=== PATIENT | female | born 1955 | race Hispanic/Latino ===

== ENCOUNTER 2019-05-19 09:36 | Emergency (ER) | payer MEDICARE ==
[2019-05-19 09:41] VITALS: BP 149/90
[2019-05-19] MEDS ORDERED: IBUPROFEN PO ONE (09:56)
--- NOTE | 2019-05-19 10:03 | Emergency Department Report ---
Upper Extremity - HPI Chief Complaint: Extremity Problem,Nontraumatic Stated Complaint: LFT SIDE PAIN Time Seen by Provider: 05/19/19 09:55 Upper Extremity: Left Shoulder Occurred When: >5 Days Mechanism: Unsure Severity: moderate Symptoms: Yes Pain with Movement, Yes Limited Range of Movement, No Deformity, No Numbness, No Weakness, No Swelling, No Bruising/Ecchymosis, No Laceration or Abrasion Other History: Mrs. Pulido is a very pleasant 63 yo female with hx of tobacco use who presents with left shoulder pain for the past 1 1/2 months. Attempted to see orthopedic surgeon. Nurse of the orthopedic surgeon recommended x-rays. No direct trauma. She is retired. Has been active with grandchildren. No remote trauma. Moderately severe pain. Decreased ROM in left shoulder with stiffness. ED Review of Systems ROS: Stated complaint: LFT SIDE PAIN Other details as noted in HPI Constitutional: denies: fever, malaise Respiratory: denies: cough, shortness of breath Musculoskeletal: arthralgia. 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 No distress. Alert and acting appropriately. Head and Torso: No HEENT Abnormality, No Neck Tenderness Shoulder Exam: Yes Shoulder Tenderness, No Clavicle Tenderness, No Normal Range of Motion in Shoulder, No Shoulder Deformity, No AC Joint Tenderness Arm Exam: No Arm/Humerus Tenderness, No Arm Deformity Elbow: Yes Normal Range of Motion in Elbow, No Elbow Tenderness, No Elbow Deformity Forearm: No Forearm Tenderness, No Forearm Deformity, No Pain with Pronation, No Pain with Supination Wrist: Yes Normal ROM in Wrist, No Wrist Tenderness, No Wrist Deformity, No Snuffbox Tenderness, No Pain with Axial Thumb Compression Hand: Yes Normal ROM in Digit(s), No Hand Tenderness, No Hand Deformity, No Digit Tenderness, No Digit(s) Deformity, No Tendon Dysfunction CMS Exam: Yes Normal Distal Pulses, Yes Normal Capillary Refill, Yes Normal Distal Sensation, No Broken Skin ED Course Vital Signs 05/19/19 09:37 Temperature 98.2 F Pulse Rate 91 H Respiratory 20 Rate Blood Pressure 149/90 [Right] O2 Sat by Pulse 92 Oximetry ED Medical Decision Making - Radiology Data Radiology results: report reviewed Left shoulder radiographs: Degenerative changes without fracture or subluxation no soft tissue swelling or radiopaque foreign body - Medical Decision Making Left shoulder DJD will need further evaluation by orthopedic surgeon: possible rotator cuff tendinitis versus tear Prescribed ibuprofen Critical care attestation.: If time is entered above; I have spent that time in minutes in the direct care of this critically ill patient, excluding procedure time. ED Disposition Clinical Impression: DJD of left shoulder, Acute pain of left shoulder Disposition: DC-01 TO HOME OR SELFCARE Is pt being admited?: No Does the pt Need Aspirin: No Condition: Stable Additional Instructions: Please take the ibuprofen as prescribed. Please contact Dr. Fowler's office. Please let his office know that the x-rays of the shoulder are available in the hospital computer system. Prescriptions: Ibuprofen [Motrin 800 MG tab] 800 mg PO TID 5 Days #15 tablet Referrals: WYATT FOWLER MD [Staff Physician] - 3-5 Days
--- NOTE | 2019-05-19 11:55 | XRay Report ---
LEFT SHOULDER 4 VIEWS INDICATION: left shoulder pain. COMPARISON: No relevant prior imaging study available. FINDINGS: No acute fracture or dislocation is seen. There is mild acromioclavicular degenerative change. No sof t tissue calcifications. IMPRESSION: 1. No acute findings. Signer Name: Nathaniel Ashley MD Signed: 05/19/2019 11:50 AM Workstation Name: [facility]
== END 2019-05-19 11:02 | disposition home or self-care (01) ==
LOC: ED 09:36
DX: M25.512 Pain in left shoulder (principal); M19.012 Primary osteoarthritis, left shoulder; F17.200 Nicotine dependence, unspecified, uncomplicated

== ENCOUNTER 2021-03-15 14:45 | Emergency (ER) | payer MEDICARE ==
[2021-03-15 17:07] VITALS: BP 171/83
--- NOTE | 2021-03-15 17:33 | Emergency Department Report ---
- General Chief complaint: Skin Rash Stated complaint: SHINGLES Time Seen by Provider: 03/15/21 17:27 Source: patient Mode of arrival: Ambulatory Limitations: No Limitations - History of Present Illness Initial comments: Patient is a 65-year-old female presents to the emergency room complaints of a rash that began 2 weeks ago. States that it has been itching and she has been scratching frequently. She denies anyone else with the same rash. States that she was concerned she may have shingles but has never had shingles in the past. She states that the rash was present to her back of her neck and her lower back. She denies any new soaps, lotions, detergents, medications, foods. States that she has been under a lot of stress. She denies any facial swelling or difficult y swallowing. She denies any fever, nausea, vomiting, diarrhea, chills. Patient denies any past medical history or daily medications. No allergies to medications. - Related Data Previous Rx's Medication Instructions Recorded Last Taken Type Ibuprofen [Motrin 800 MG tab] 800 mg PO TID 5 Days #15 tablet 05/19/19 Unknown Rx Triamcinolone 0.1% [Kenalog 0.1% 1 applic TP TID #3 tube 03/15/21 Unknown Rx CREAM] hydrOXYzine HCL [Atarax] 25 mg PO Q6HR PRN #12 tablet 03/15/21 Unknown Rx Allergies Allergy/AdvReac Type Severity Reaction Status Date / Time No Known Allergies Allergy Unverified 05/19/19 09:37 Abscess Boil HPI - HPI Chief Complaint: Skin Rash Stated Complaint: SHINGLES Time Seen by Provider: 03/15/21 17:27 Home Medications: Previous Rx's Medication Instructions Recorded Last Taken Type Ibuprofen [Motrin 800 MG tab] 800 mg PO TID 5 Days #15 tablet 05/19/19 Unknown Rx Triamcinolone 0.1% [Kenalog 0.1% 1 applic TP TID #3 tube 03/15/21 Unknown Rx CREAM] hydrOXYzine HCL [Atarax] 25 mg PO Q6HR PRN #12 tablet 03/15/21 Unknown Rx Allergies/Adverse Reactions: Allergies Allergy/AdvReac Type Severity Reaction Status Date / Time No Known Allergies Allergy Unverified 05/19/19 09:37 ED Review of Systems ROS: Stated complaint: SHINGLES Other details as noted in HPI Comment: All other systems reviewed and negative ED Past Medical Hx - Past Medical History Previous Medical History?: No - Surgical History Past Surgical History?: Yes Additional Surgical History: C section - Social History Smoking Status: Current Every Day Smoker - Medications Home Medications: Home Medications Medication Instructions Recorded Confirmed Last Taken Type Ibuprofen [Motrin 800 MG tab] 800 mg PO TID 5 Days #15 tablet 05/19/19 Unknown Rx Triamcinolone 0.1% [Kenalog 0.1% 1 applic TP TID #3 tube 03/15/21 Unknown Rx CREAM] hydrOXYzine HCL [Atarax] 25 mg PO Q6HR PRN #12 tablet 03/15/21 Unknown Rx ED Physical Exam - General Limitations: No Limitations General appearance: alert, in no apparent distress - Head Head exam: Present: atraumatic, normocephalic - Eye Eye exam: Present: normal appearance - ENT ENT exam: Present: mucous membranes moist - Neurological Exam Neurological exam: Present: alert, oriented X3 - Psychiatric Psychiatric exam: Present: normal affect, normal mood - Skin Skin exam: Present: warm, dry, other (maculopapular rash present to the posterior neck, upper back and lower back, no blistering, no skin denuding, no signs of infection) ED Course Vital Signs 03/15/21 17:04 Temperature 98.4 F Pulse Rate 76 Respiratory 20 Rate Blood Pressure 171/83 [Right] O2 Sat by Pulse 94 Oximetry ED Medical Decision Making - Medical Decision Making Patient is a 65-year-old female presents to the emergency room complaints of a rash that began 2 weeks ago. States that it has been itching and she has been scratching frequently. She denies anyone else with the same rash. States that she was concerned she may have shingles but has never had shingles in the past. She states that the rash was present to her back of her neck and her lower back. She denies any new soaps, lotions, detergents, medications, foods. States that she has been under a lot of stress. She denies any facial swelling or difficulty swallowing. She denies any fever, nausea, vomiting, diarrhea, chills. Patient denies any past medical history or daily medications. No allergies to medications. vss. on exam:maculopapular rash present to the posterior neck, upper back and lower back, no blistering, no skin denuding, no signs of infection. Examination appears consistent with a skin dermatitis. Patient given prescription for medications. Discussed the importance of primary care and dermatology follow-up. She has no clinical signs of emergent skin condition at this time. Advised patient Please use medication as prescribed. Please avoid scratching. Follow-up with your primary care doctor and a flow manager. Return to emergency room for any new or worsening symptoms. Critical care attestation.: If time is entered above; I have spent that time in minutes in the direct care of this critically ill patient, excluding procedure time. ED Disposition Clinical Impression: Rash Disposition: DC- TO HOME OR SELFCARE Is pt being admited?: No Does the pt Need Aspirin: No Condition: Stable Instructions: Contact Dermatitis, [id number] Additional Instructions: Please use medication as prescribed. Please avoid scratching. Follow-up with your primary care doctor and a flow manager. Return to emergency room for any new or worsening symptoms. flow manager: [facility] [address] [facility] in [place], [place] Address: [address] [place] [address] Yue Tierney MD Address: [address] [place] [address] Prescriptions: hydrOXYzine HCL [Atarax] 25 mg PO Q6HR PRN #12 tablet PRN Reason: Itching Triamcinolone 0.1% [Kenalog 0.1% CREAM] 1 applic TP TID #3 tube Referrals: TERESITA YARBROUGH MD [Staff Physician] - 3-5 Days [facility] [Provider Group] - 3-5 Days Time of Disposition: 17:30 Print Language: CAMBODIAN
== END 2021-03-15 17:40 | disposition home or self-care (01) ==
LOC: ED 14:45
DX: R21 Rash and other nonspecific skin eruption (principal); F17.200 Nicotine dependence, unspecified, uncomplicated
CPT/HCPCS: 99281